=== PATIENT | male | born 1935 ===

== ENCOUNTER → 2019-02-05 | Outpatient (REF) | payer MEDICARE | LOC: M LAB LCGH 13:54 | PROVIDERS: ATTEND Specialist | DX: M70.51 Other bursitis of knee, right knee (principal) ==

== ENCOUNTER → 2019-05-19 | Outpatient (REF) | LOC: M LAB LCGH 10:04 | PROVIDERS: ATTEND Physician Assistant | DX: D48.5 Neoplasm of uncertain behavior of skin (principal) ==